=== PATIENT | male | born 1990 | race Caucasian/White ===

== ENCOUNTER 2022-02-19 08:32 | Emergency (ER) | payer SELFPAY ==
[2022-02-19 08:44] VITALS: BP 95/58; PULSE 80; RESP 20; TEMP 36.9; O2SAT 100
--- NOTE | 2022-02-19 09:18 | ED.BACK ---
HPI - Back Pain/Injury General Chief Complaint: Back Pain/Injury Stated Complaint: Low Back Pain/Dark Stool Time Seen by Provider: 02/19/22 09:21 Source: patient and RN notes reviewed Mode of arrival: ambulatory Limitations: no limitations History of Present Illness MD elicited complaint: back pain Related Data Home Medications Medication Instructions Recorded Confirmed No Home Medications 02/19/22 02/19/22 Allergies Allergy/AdvReac Type Severity Reaction Status Date / Time No Known Allergies Allergy Verified 02/19/22 09:15 Review of Systems Review of Systems: CONSTITUTIONAL: Denies malaise, chills, sweats, or fever. CARDIOVASCULAR: Denies chest pain, palpitations, or edema. RESPIRATORY: Denies cough or dyspnea. GASTROINTESTINAL: Denies abdominal pain, nausea, vomiting, diarrhea, loss of bowel function GENITOURINARY: Denies dysuria, hematuria, frequency, loss of bladder function. SKIN: Denies rash or itching. MUSCULOSKELETAL: Reports low back pain NEUROLOGIC: Denies numbness, weakness, or headache. All systems reviewed & are unremarkable except as noted in HPI and below PMFSH Comments At time of signature, agree with nursing past medical, surgical, social and family history. There is no relevant family history pertinent to the presenting complaint Exam Narrative: GENERAL: Well-appearing, well-nourished, and in no acute distress. HEAD: Normocephalic, atraumatic. EYES: PERRLA and EOMI. NECK: Supple. No lymphadenopathy. CHEST: Clear to auscultation. No respiratory distress. HEART: Regular rate and rhythm. Distal pulses palpable and equal, cap refill <3 seconds ABDOMEN: Soft, nontender, nondistended, normal active bowel sounds, no palpable or pulsatile masses. No CVA tenderness MUSCULOSKELETAL: Normal range of motion and strength in all extremities; 5/5 strength with hip flexion and extension, dorsiflexion and extension, knee flexion and extension, plantar flexion and extension. Normal sensation in dermatomal distributions with sensitivity to light touch and pain. No midline back tenderness to palpation. No paraspinal tenderness. Transfers from lying to sitting to standing. SKIN: Warm, dry, no rash. No ecchymosis, erythema, open wounds to back. NEURO: No focal deficits. Alert and oriented x3. Reflexes intact. Normal gait. PSYCH: Normal mood and affect Course Course Emergency Course: Patient is aware of diagnosis, understands and agrees to treatment plan. Anticipatory guidance given. Patient agrees to follow-up as directed and is aware of reasons to seek care at the emergency department. Portions of this record may have been created with voice recognition software Level of Care: Express Care Visit Vital Signs Vital signs: Vital Signs Temperature 98.5 F 02/19/22 08:44 Pulse Rate 80 02/19/22 08:44 Respiratory Rate 20 02/19/22 08:44 Blood Pressure 95/58 L 02/19/22 08:44 Pulse Oximetry 100 02/19/22 08:44 Oxygen Delivery Room Air 02/19/22 08:44 Temperature 98.5 F 02/19/22 08:44 Pulse Rate 80 02/19/22 08:44 Respiratory Rate 20 02/19/22 08:44 Blood Pressure 95/58 L 02/19/22 08:44 Pulse Oximetry 100 02/19/22 08:44 Oxygen Delivery Room Air 02/19/22 08:44 Reviewed. MDM - Back Pain/Injury MDM Narrative Medical decision making narrative: No risk factors or findings concerning for epidural abscess, diskitis, vertebral osteomyelitis, cord compression, cauda equina, vertebral fracture or bone malignancy, AAA, or pyelonephritis. Patient instructed to consider further imaging and workup through their primary care physician as an outpatient if symptoms persist. Critical Care Time Critical Care Time Critical Care Time: No Discharge Plan Discharge Prescriptions: No Action No Home Medications Follow-up/Referrals: PHYSICIAN,FISH HATCHERY WORKER [Primary Care Provider] -
--- NOTE | 2022-02-19 09:34 | ED.GENADULT ---
HPI - General Adult General Chief complaint: Back Pain/Injury Stated complaint: Low Back Pain/Dark Stool Time Seen by Provider: 02/19/22 09:21 Source: patient Mode of arrival: ambulatory Limitations: no limitations History of Present Illness HPI narrative: 31-year-old male presents to concern for chills, sweats, headache, cough, nausea, low back pain, general malaise started on Wednesday. Reports he started taking Mucinex, DayQuil, aspirin, Kaopectate. Presents today with concern for stools that are black in color and bilateral low back pain. He denies constipation, diarrhea, abdominal pain, vomiting. Reports 1 episode of dry heaving yesterday. Reports decreased appetite. MD complaint: Discolored stools Related Data Home Medications Medication Instructions Recorded Confirmed No Home Medications 02/19/22 02/19/22 Allergies Allergy/AdvReac Type Severity Reaction Status Date / Time No Known Allergies Allergy Verified 02/19/22 09:15 Review of Systems Review of Systems: CONSTITUTIONAL: Reports malaise, chills, sweats EYES: Denies visual changes, redness, or discharge. ENT: Denies rhinorrhea, congestion. Denies sinus pain, otalgia or sore throat. CARDIOVASCULAR: Denies chest pain, palpitations, or edema. RESPIRATORY: Denies cough. Denies dyspnea. GASTROINTESTINAL: Denies abdominal pain, vomiting, diarrhea, bloody, or mucous stools. Reports 1 episode of dry heaving and black stools yesterday and today GENITOURINARY: Denies dysuria or hematuria. SKIN: Denies rash or itching. MUSCULOSKELETAL: Reports bilateral low back pain, myalgia. NEUROLOGIC: Reports headache. All systems reviewed & are unremarkable except as noted in HPI and below PMFSH Comments At time of signature, agree with nursing past medical, surgical, social and family history. There is no relevant family history pertinent to the presenting complaint Exam Narrative: GENERAL: Well-appearing, well-nourished, and in no acute distress. HEAD: Normocephalic, atraumatic. EYES: PERRLA, sclera clear, and EOMI. No nystagmus. ENT: Nares clear, turbinates pink, no rhinorrhea or epistaxis. Mucous membranes moist. TM pearly stout with sharp light reflex bilaterally; no tragal tenderness. Oropharynx without erythema or lesions. Tonsils not enlarged and without exudate. NECK: Supple. No lymphadenopathy. No jugular venous distension, thyromegaly, or carotid bruits. Carotids were easily palpable bilaterally. CHEST: No respiratory distress. Clear to auscultation. No bony deformities, no asymmetry. Speaks in full sentences. HEART: Regular rate and rhythm. No murmur heard. Normal peripheral pulses. ABDOMEN: Soft, nontender, nondistended, normal active bowel sounds, no palpable masses. EXTREMITIES: Normal range of motion. No edema. Normal strength and sensation. SKIN: Warm, dry, no visible rash. NEURO: Alert and oriented x3. No focal deficits. Cranial nerves II through XII grossly intact PSYCH: Normal mood and affect Course Course Emergency Course: Discussed exam findings, and doing a Hemoccult stool test. At this time patient refuses Hemoccult stool test, explained that dark-colored stools can likely be caused by Kaopectate. In the absence of any other concerning abdominal symptoms or pertinent history, patient given reasons to follow-up with primary care provider or ER if symptoms progress Patient is aware of diagnosis, understands and agrees to treatment plan. Anticipatory guidance given. Patient agrees to follow-up as directed and is aware of reasons to seek care at the emergency department. Portions of this record may have been created with voice recognition software Level of Care: Express Care Visit Vital Signs Vital signs: Vital Signs Temperature 98.5 F 02/19/22 08:44 Pulse Rate 80 02/19/22 08:44 Respiratory Rate 20 02/19/22 08:44 Blood Pressure 95/58 L 02/19/22 08:44 Pulse Oximetry 100 02/19/22 08:44 Oxygen Delivery Room Air 02/19/22 08:44 T
== END 2022-02-19 09:58 | disposition home or self-care (01) ==
PROVIDERS: Emergency Provider Nurse Practitioner
DX: U07.1 COVID-19 (principal)
CPT/HCPCS: 87426; 87804; 99202; C9803; G0463

== ENCOUNTER 2023-11-04 11:12 | Outpatient (CLI) | payer OTHER, SELFPAY ==
--- NOTE | ~2023-11-04 | XR_ITS ---
Lumbosacral Spine: AP and lateral views Clinical History: Pain Findings: The normal lordotic curve is maintained. The vertebral bodies and posterior elements are i ntact. The intervertebral disc spaces are preserved. The sacroiliac joints are normally outlined. Impression: No significant abnormality. Reviewed, dictated and finalized at [facility]. 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
== END 2023-11-04 11:13 | disposition home or self-care (01) ==
LOC: CHSIMG 11:17
PROVIDERS: PCP Family Medicine; Visit Provider Family Medicine
DX: M54.16 Radiculopathy, lumbar region (principal)
CPT/HCPCS: 72100

== ENCOUNTER 2023-11-26 15:48 | Outpatient (RCR) | payer OTHER, SELFPAY ==
--- NOTE | 2023-11-26 16:57 | OPREHPOC ---
Outpatient Therapy Plan of Care This is a Multidisciplinary Plan of Care that may contain components documented by all disciplines (PT, OT, and ST.) PT Problem 1 PT Problem #1 Knowledge Deficit PT Goal 1 Goal Patient to demonstrate independence with HEP Target Visit 5 PT Problem 2 PT Problem #2 Pain PT Goal 1 Goal 1. Patient to report highest pain at 2/10 2. Patient to report ability to sleep with no disturbance due to low back pain Target Visit 10 PT Problem 3 PT Problem #3 Impaired Strength PT Goal 1 Goal 1. Patient to demonstrate 5/5 B LE strength to return to house hold lifting 2. Patient to demonstrate 4+/5 core strength to return to standing upright for house hold tasks Target Visit 10 PT Problem 4 PT Problem #4 Impaired Functional Mobil PT Goal 1 Goal 1. patient to demonstrate 20% improvement on Back Index 2. Patient to report ability to drive to work with no radiating pain to the L LE Target Visit 10
--- NOTE | 2023-11-26 16:57 | PTOPEVAL1 ---
Assessment and note entered by Deirdre Danielson DPT Evaluation Information Assessment Status Evaluation Diagnosis back pain, L LE pain Subjective Information Patient reports in August he had an onset of low back pain. Since then he has reported that pain has radiated to the L glute and down the back of the entire leg. He reports the L LE feels weaker. He reports pain is worse with sitting, driving, standing in one place increases pain. He reports difficulty sleeping. He reports that laying on his stomach decreases pain. He reports he took a steroid pack and that did help pain. 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 Reported Pain Level Pain Score 0,2: Self Report Assessment PT Clinical Summary Mr. Mai is a 33 year old male who presents to PT with low back and radiating pain to the L LE. Patient demonstrates decreased LE strength, impaired LE flexibility and decreased core strength limiting his ability to sit to drive, laying down to sleep and standing in one place for house hold tasks. Patient presents with symptoms consistent with discogenic involvement. He would benefit from skilled PT to address impairments and return to PLOF. Plan of Care Interventions Electrical Stimulation,Gait Training,Hot Pack/Cold Pack,Manual Therapy,Mechanical Traction,Neuro Re- education,Patient/Caregiver Educati,Therapeutic Activities,Therapeutic Exercise PT Services Indicated Yes Treatment Frequency and 2x weekly for 10 visits Duration These treatments will address the objective and functional deficits as defined above. The patient will be advanced safely and appropriately in order for the patient to progress towards his/her prior level of function. Additional exercises will be introduced and as well as a comprehensive home exercise program upon discharge, if needed, ?to ensure carryover of functional gains achieved in the clinic. This treatment plan has been reviewed and agreement upon by the patient.
== END 2023-12-27 20:00 | disposition home or self-care (01) ==
LOC: CHSPT 15:48
PROVIDERS: Visit Provider Family Medicine
DX: M54.16 Radiculopathy, lumbar region (principal)
CPT/HCPCS: 97012; 97014; 97110; 97140; 97150; 97161; G0283

== ENCOUNTER 2024-01-13 07:57 | Outpatient (CLI) | payer OTHER, SELFPAY ==
--- NOTE | ~2024-01-13 | MR_ITS ---
MRI of the lumbar spine Clinical History: Radiculopathy Technique: Axial T2-weighted images, and sagittal T1-weighted, T2-weighted, and T2 fat-sat images wer e acquired. Findings: There is no fracture or subluxation of the lumbar spine. Vertebral bodies maintain normal h eight and alignment. No bone marrow signal abnormality seen. At L1-L2, L2-L3, L3-L4, there is no disc bulge or herniation. There are mild facet joint degenerative changes at these levels. No spinal canal stenosis or neural foraminal narrowing at these levels. At L4-L5, there is minimal disc bulge and mild facet arthropathy. No central canal stenosis. There is minimal left neural foraminal narrowing. Right neural foramen preserved. At L5-S1, there is mild degenerative disc narrowing. There is a large disc extrusion/herniation at th e left paracentral region, impinging the descending left S1-S2 level nerve root. There is moderate co mpression of the thecal sac. Neural foramina at this level are preserved. Paravertebral soft tissues are unremarkable. Impression: Large left paracentral disc extrusion/herniation at L5-S1, impinging the descending left S1-S2 level nerve root, and resulting in moderate compression of the thecal sac. Mild degenerative change in the remainder of the lumbar spine, as above. Reviewed, dictated and finalized at [facility]. Impression: Large left paracentral disc extrusion/herniation at L5-S1, impinging the descen ding left S1-S2 level nerve root, and resulting in moderate compression of the thecal sac. Mild degenerative change in the remainder of the lumbar spine, as above.
== END 2024-01-13 07:58 | disposition home or self-care (01) ==
LOC: CHSIMG 07:58
PROVIDERS: PCP Family Medicine; Visit Provider Family Medicine
DX: M54.16 Radiculopathy, lumbar region (principal); M51.27 Other intervertebral disc displacement, lumbosacral region
CPT/HCPCS: 72148

== ENCOUNTER 2024-02-29 17:06 | Outpatient (RCR) | payer OTHER, SELFPAY ==
--- NOTE | 2024-02-29 17:51 | OPREHPOC ---
Outpatient Therapy Plan of Care This is a Multidisciplinary Plan of Care that may contain components documented by all disciplines (PT, OT, and ST.) PT Problem 1 PT Problem #1 Knowledge Deficit PT Goal 1 Goal 1. independent and compliant with HEP Target Visit 6 PT Problem 2 PT Problem #2 Pain PT Goal 1 Goal 1. no pain in the lower back or L buttock 2. no paresthia's in the L LE Target Visit 12 PT Problem 3 PT Problem #3 Impaired Strength PT Goal 1 Goal 1. 5/5 L hip strength overall 2. 5/5 L hip ext strength 3. 5/5 L ankle DF Target Visit 12 PT Problem 4 PT Problem #4 Impaired Functional Mobil PT Goal 1 Goal 1. patient to tolerate sitting activities in chair and car for 2 hours or more 2. oswestry to display 10% or less functional deficits 3. patient to safely squat and lift 40lbs with good mechanics and no pain/paresthesia's Target Visit 12
--- NOTE | 2024-02-29 17:52 | PTOPEVAL1 ---
Assessment and note entered by JT File, PT Evaluation Information Assessment Status Evaluation Diagnosis lumbar radiculopathy Onset 02/15/24 Subjective Information patient was here in october/november of this year for lumbar radiculopathy. he was discharged and referred to specialist care for continued symptoms in the L LE. he was seen by a specialist who performed an injection of the lower lumbar spine. he reports it is better, but still has some symptoms down his L LE. he reports less pins and needles, but still tingling and numbness down to the L LE. he reports he is able to tolerate sitting and riding in a car for roughly 30 minutes , but any more than this he gets increased symptoms. 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 he reports he has been back to work for about 2 weeks . he reports he prefers to stand still. Reported Pain Level Pain Score 0: Self Report Assessment PT Clinical Summary mr. damon is a 33 yo man who presents to skilled PT services for evaluation and treatment of lumbar radiculopathy to the L LE. he presents today with signs and symptoms consistent with his referring diagnosis. he presents with radicular symptoms into the L LE including paresthesia's and weakness . he would benefit from continued skilled PT to address his objective/functional deficits and progress towards a return to his prior level functional activity performance/quality of life. Plan of Care Interventions Electrical Stimulation,Hot Pack/Cold Pack,Manual Therapy,Mechanical Traction,Neuro Re-education, Patient/Caregiver Educati,Therapeutic Activities, Therapeutic Exercise PT Services Indicated Yes Treatment Frequency and 3x weekly for 12 visits Duration These treatments will address the objective and functional deficits as defined above. The patient will be advanced safely and appropriately in order for the patient to progress towards his/her prior level of function. Additional exercises will be introduced and as well as a comprehensive home exercise program upon discharge, if needed, ?to ensure carryover of functional gains achieved in the clinic. This treatment plan has been reviewed and agreement upon by the patient.
--- NOTE | 2024-03-02 17:01 | PCPTNOTE ---
I reviewed the License Pending Therapist's documentation and agree with the findings.
--- NOTE | 2024-03-15 16:29 | PCPTNOTE ---
Patient cancelled session today. Reports his car overheated.
--- NOTE | 2024-03-27 18:06 | OPREHPOC ---
Outpatient Therapy Plan of Care This is a Multidisciplinary Plan of Care that may contain components documented by all disciplines (PT, OT, and ST.) PT Problem 1 PT Problem #1 Knowledge Deficit PT Goal 1 Goal 1. independent and compliant with HEP Target Visit 6 Progress Met PT Problem 2 PT Problem #2 Pain PT Goal 1 Goal 1. no pain in the lower back or L buttock 2. no paresthia's in the L LE Target Visit 12 Progress Not Met PT Problem 3 PT Problem #3 Impaired Strength PT Goal 1 Goal 1. 5/5 L hip abd strength. met 2. 5/5 L hip ext strength. not met 3. 5/5 L ankle DF. not met Target Visit 12 Progress Partially Met PT Problem 4 PT Problem #4 Impaired Functional Mobil PT Goal 1 Goal 1. patient to tolerate sitting activities in chair and car for 2 hours or more 2. oswestry to display 10% or less functional deficits 3. patient to safely squat and lift 40lbs with good mechanics and no pain/paresthesia's Target Visit 12 Progress Not Met
--- NOTE | 2024-03-27 18:06 | PTOPPROGNS ---
Assessment and note entered by JT File, PT Evaluation Information Assessment Status Progress Diagnosis lumbar radiculopathy ICD-10 Condition Codes (PT) M54.16 Onset 02/15/24 Subjective Information patient reports his pain is not bad when active and standing, but after sitting for 15-20 minutes his pain is increased and has to stand up. he reports he has no issues after a few minutes of standing. Assessment PT Clinical Summary mr. damon presents to skilled PT services for his 10th skilled therapy visit. he is progressing in L hip strength, but continues to be weakest in L hip extension. he continues to have L LE paresthesia's that are recreated with sitting, especially in a car, for only 15-20 minutes. skilled PT will continue and focus on remaining unmet goals and functional mobility. Plan of Care Interventions Electrical Stimulation,Hot Pack/Cold Pack,Manual Therapy,Mechanical Traction,Neuro Re-education, Patient/Caregiver Educati,Therapeutic Activities, Therapeutic Exercise PT Services Indicated Yes Treatment Frequency and continue skilled PT per initial POC Duration These treatments will address the objective and functional deficits as defined above. The patient will be advanced safely and appropriately in order for the patient to progress towards his/her prior level of function. Additional exercises will be introduced and as well as a comprehensive home exercise program upon discharge, if needed, ?to ensure carryover of functional gains achieved in the clinic. This treatment plan has been reviewed and agreement upon by the patient.
== END 2024-04-03 15:38 | disposition home or self-care (01) ==
LOC: CHSPT 17:06
PROVIDERS: Visit Provider Nurse Practitioner Family
DX: M54.16 Radiculopathy, lumbar region (principal)
CPT/HCPCS: 97110; 97140; 97161; 97530

== ENCOUNTER 2025-03-01 17:05 | Emergency (ER) | payer OTHER, SELFPAY ==
[2025-03-01 17:05] VITALS: BP 127/86; PULSE 73; RESP 18; TEMP 36.6; O2SAT 100
[2025-03-01] MEDS: TETANUS,DIPHTHERIA,AC PERTUSSIS ADULT 0.5 ML (ADACEL) IM (17:22)
--- NOTE | 2025-03-01 17:38 | ED.WOUNDLAC ---
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 Onset (ago): hour(s) Location: other Extremity Location: Left: hand ( index finger well-approximated laceration) Place: work Patient tetanus UTD: No Context: accidental Related Data Home Medications ?Medication ?Instructions ?Recorded ?Confirmed ?Last Taken ?Type No Home Medications 02/19/22 02/19/22 Unknown History Allergies Allergy/AdvReac Type Severity Reaction Status Date / Time No Known Allergies Allergy Verified 03/01/25 17:05 Review of Systems Review of Systems: All systems reviewed & are unremarkable except as noted in HPI and below PMFSH Past Medical History Medical History Patient denies medical problems Exam Const: General: healthy appearing Nutritional Appearance: well nourished Orientation/consciousness: patient oriented x3 Limitations: no limitations Neck: Neck: normal visual inspection Chest: Chest palpation & inspection: normal inspection of the chest Resp: Effort & Inspection: normal respiratory effort Auscultation: clear to auscultation bilaterally Cardio: Rate: regular rate Rhythm: regular rhythm GI: GI Palp: Yes Soft to palpation Skin: General skin exam: normal color Rashes: no rashes Wounds: wounds noted Other: well approximated 2cm laceration distal end of his left index finger Neuro: General: patient oriented x3, moves all extremities and no meningeal signs Course Course Emergency Course: area was cleaned and updated with his tetanus and Dermabond was used to affected area. Vital Signs Vital signs: Vital Signs Temperature 36.6 C 03/01/25 17:05 Pulse Rate 73 03/01/25 17:05 Respiratory Rate 18 03/01/25 17:05 Blood Pressure 127/86 03/01/25 17:05 Pulse Oximetry 100 03/01/25 17:05 Oxygen Delivery Room Air 03/01/25 17:05 Temperature 36.6 C 03/01/25 17:05 Pulse Rate 73 03/01/25 17:05 Respiratory Rate 18 03/01/25 17:05 Blood Pressure 127/86 03/01/25 17:05 Pulse Oximetry 100 03/01/25 17:05 Oxygen Delivery Room Air 03/01/25 17:05 Procedures Laceration Laceration 1: Date: 03/01/25 Time: 17:40 Site: hand Side (If applicable): left Size (cm): 2 Description: linear Depth: simple, single layer Pre-repair: wound explored ====== Skin Level ====== Skin layer closed with: dermabond ====== Subcutaneous Layer ====== ====== Muscle Layer ====== ====== Tendon Layer ====== Critical Care Time Critical Care Time Critical Care Time: No Discharge Plan Discharge Clinical Impression: Laceration Patient Disposition: Home Condition: Stable Instructions: Antibiotic Form, Laceration (ED), Skin Adhesive Care (ED) Additional Instructions: Advised follow with primary symptoms persist or worsen. Patient Language: [place] Prescriptions: No Action No Home Medications Follow-up/Referrals: Gael Singh MD [Primary Care Provider] - Time of Disposition: 17:41
== END 2025-03-01 17:53 | disposition home or self-care (01) ==
LOC: CHSED 17:49
PROVIDERS: Emergency Provider Emergency Medicine; PCP Family Medicine
DX: S61.211A Laceration without foreign body of left index finger without damage to nail, initial encounter (principal); Z23 Encounter for immunization; W26.0XXA Contact with knife, initial encounter; Y99.0 Civilian activity done for income or pay
CPT/HCPCS: 12001; 90471; 90715; 99283